=== PATIENT | female | born 1960 | race Caucasian/White ===

== ENCOUNTER → 2018-01-18 | Outpatient (CLI) | payer OTHER ==
[~2018-01-18] MED LIST: BLAC40TA4 PO; ERG400 PO; IBU800 PO; LEVO50TA80 PO; LOR5/325 PO; MULT-820 PO; VITA100C12 PO; [UNRECOGNIZED DRUG - CODE] PO
--- NOTE | 2018-01-18 18:15 | RADIOLOGY IMAGING REPORT ---
[place] [facility] [place]: SKIP GALVEZ : [id number] MR: [id number] V: [id number] EXAM DATE: ORDERING PHYSICIAN: DIPTI PRINGLE TECHNOLOGIST: Jennifer Uribe PROCEDURE:BILATERAL DIGITAL SCREENING MAMMOGRAM WITH CAD ASSISTED INTERPRETATION & 3D TOMOSYNTHESIS COMPARISON:Prior mammogram 01/14/17 back to 12/02/12. INDICATIONS:screening FINDINGS: The breast parenchyma consists of scattered fibroglandular tissue. There are no dominant masses or recent microcalcifications. DIAGNOSTIC CATEGORY 1--NEGATIVE. RECOMMENDATIONS: ROUTINE MAMMOGRAM AND CLINICAL EVALUATION. IMPRESSION: BIRADS 1: Negative. Routine mammographic screening. Dictated by: Davion Jones M.D. on 01/18/2018 at 11:23 Transcribed by: MEHRAN on 01/18/2018 at 11:37 Approved by: Davion Jones M.D. on 01/18/2018 at 18:14 [facility]
== END ==
LOC: MAMO 01:28
PROVIDERS: ATTEND Obstetrics & Gynecology
DX: Z12.31 Encounter for screening mammogram for malignant neoplasm of breast (principal)
CPT/HCPCS: 77063; 77067

== ENCOUNTER → 2019-02-02 | Outpatient (CLI) | payer OTHER ==
--- NOTE | 2019-02-02 16:03 | RADIOLOGY IMAGING REPORT ---
FACILITY: [facility] PATIENT NAME: SKIP GALVEZ : [id number] MR: [id number] V: [id number] EXAM DATE: [id number] ORDERING PHYSICIAN: DIPTI PRINGLE TECHNOLOGIST: Jennifer Uribe PROCEDURE: BILATERAL DIGITAL SCREENING MAMMOGRAM WITH CAD ASSISTED INTERPRETATION & 3D TOMOSYNTHESIS REASON FOR STUDY: Screening. COMPARISON: 01/25/18 back to 01/11/15. VIEWS OBTAINED: 2D & 3D full field CC & MLO projections. BREAST DENSITY: The breast parenchyma consists of scattered fibroglandular tissue. MAMMOGRAM FINDINGS: There are no dominant masses or recent microcalcifications present. IMPRESSION: BIRADS 1: Negative. DIAGNOSTIC CATEGORY 1--NEGATIVE. RECOMMENDATIONS: ROUTINE MAMMOGRAM AND CLINICAL EVALUATION. Dictated by: Davion Jones M.D. on 02/02/2019 at 12:07 Transcribed by: MEHRAN on 02/02/2019 at 14:23 Approved by: Davion Jones M.D. on 02/02/2019 at 15:58 [facility]
== END ==
LOC: MAMO 00:30
PROVIDERS: ATTEND Obstetrics & Gynecology
DX: Z12.31 Encounter for screening mammogram for malignant neoplasm of breast (principal)
CPT/HCPCS: 77063; 77067